=== PATIENT | female | born 1990 | race Caucasian/White ===

== ENCOUNTER 2025-02-26 06:32 | Day surgery (SDC) | payer OTHER ==
[2025-02-25 09:20] VITALS: BMI 34.3
[2025-02-26 11:31] VITALS: RESP 19; TEMP 98.5
[2025-02-26 11:35] VITALS: BP 122/72; PULSE 83
== END 2025-02-26 11:46 | disposition home or self-care (01) ==
LOC: JASU-ENDO 06:32
PROVIDERS: ATTEND Internal Medicine Gastroenterology
PROC: 0DB78ZX Excision of Stomach, Pylorus, Via Natural or Artificial Opening Endoscopic, Diagnostic (ICD-10-PCS; 2025-02-26)
PROC: 0DB68ZX Excision of Stomach, Via Natural or Artificial Opening Endoscopic, Diagnostic (ICD-10-PCS; 2025-02-26)
PROC: 0DB98ZX Excision of Duodenum, Via Natural or Artificial Opening Endoscopic, Diagnostic (ICD-10-PCS; principal; 2025-02-26 09:30)
DX: K29.50 Unspecified chronic gastritis without bleeding (principal)
CPT/HCPCS: 81025; 82962; 88305-TC; 88342-TC